=== PATIENT | female | born 1980 | race African-American/Black ===

== ENCOUNTER 2016-11-08 17:51 | Emergency (ER) | payer OTHER ==
[~2016-11-08] VITALS: Ht 167.6 cm; Wt 68.5 kg
[~2016-11-08 17:51] MED LIST: FLAGYL500 MG PO
[2016-11-08] MEDS ORDERED: NAPROSYN500 MG PO (19:06)
[2016-11-08 19:19] VITALS: BP 134/72
== END 2016-11-08 19:20 | disposition home or self-care (01) ==
LOC: ER 17:51
DX: S63.501A Unspecified sprain of right wrist, initial encounter (principal); S30.0XXA Contusion of lower back and pelvis, initial encounter; F10.99 Alcohol use, unspecified with unspecified alcohol-induced disorder; Z90.49 Acquired absence of other specified parts of digestive tract; Z88.1 Allergy status to other antibiotic agents; W01.0XXA Fall on same level from slipping, tripping and stumbling without subsequent striking against object, initial encounter; Y93.89 Activity, other specified; Y92.89 Other specified places as the place of occurrence of the external cause; Y99.8 Other external cause status

== ENCOUNTER → 2020-02-06 | Outpatient (CLI) | payer BC, OTHER, SELFPAY ==
[~2020-02-06] MED LIST changes: +NAPROSYN500 MG PO
== END ==
LOC: LAB 11:34
PROVIDERS: ATTEND Family Medicine
DX: Z20.828 Contact with and (suspected) exposure to other viral communicable diseases (principal)